=== PATIENT | female | born 1960 | race Caucasian/White ===

== ENCOUNTER 2019-11-17 12:52 | Day surgery (SDC) | payer OTHER ==
[2019-11-14 11:18] LABS: ALANINE AMINOTRANSFERASE 27 U/L (12-78); ALBUMIN 3.7 g/dL (3.4-5.0); ANION GAP 5 mmol/L (5-15); CALCIUM 9.1 mg/dL (8.5-10.1); CHLORIDE 110 mmol/L (98-107); CREATININE 0.71 mg/dL (0.55-1.02)
[2019-11-14 11:20] LABS: ALKALINE PHOSPHATASE 85 U/L (45-117); BILIRUBIN,TOTAL 0.4 mg/dL (0.2-1.0); TOTAL PROTEIN 7.2 g/dL (6.4-8.2)
[2019-11-15 19:45] VITALS: BP 111/71
[~2019-11-17] VITALS: Ht 154.9 cm; Wt 73.5 kg
[~2019-11-17 12:52] MED LIST: ALPR0.5T7 PO; ASPI-496 PO; ATOR-2 PO; ATOR20TA37 PO; HYDROCHLOROTH12.5 MG PO; LISI-467 PO; POTA8TAB PO; PROP20TA PO; cranberry PO
[2019-11-17] MEDS ORDERED: LACTATED RINGERS 1,000 ML IV SCH (13:09)
[2019-11-17] MEDS ORDERED: CHLORHEXIDINE 15 ML UDC MM ONE (13:30)
[2019-11-17] MEDS ORDERED: MIDAZOLAM 1 MG/ML, 2ML ONE (14:51)
[2019-11-17] MEDS ORDERED: FENTANYL PF 250 MCG/5ML ONE (14:52)
[2019-11-17] MEDS ORDERED: BUPIVACAINE/PF-EPI 0.5% 1:200K ONE (14:54)
[2019-11-17] MEDS ORDERED: LIDOCAINE 1%, 20ML ONE (14:54)
[2019-11-17] MEDS ORDERED: ONDANSETRON 2MG/ML, 2ML ONE (15:17)
[2019-11-17] MEDS ORDERED: CEFAZOLIN 1,000 MG ONE (15:17)
[2019-11-17] MEDS ORDERED: PROPOFOL 10 MG/ML, 20ML ONE (15:17)
[2019-11-17] MEDS ORDERED: DEXAMETHASONE 4 MG/ML, 1ML ONE (15:17)
[2019-11-17] MEDS ORDERED: ROCURONIUM 10MG/ML,5ML ONE (15:17)
[2019-11-17] MEDS ORDERED: ALBUTEROL SULFATE 2.5 MG/3 ML NPPB PRN (18:00)
[2019-11-17] MEDS ORDERED: DIAZEPAM 5 MG/ML, 2ML IVPush PRN (18:00)
[2019-11-17] MEDS ORDERED: LABETALOL 5MG/ML, 20ML IV PRN (18:00)
[2019-11-17] MEDS ORDERED: KETOROLAC 30 MG/1 ML IV PRN (18:00)
[2019-11-17] MEDS ORDERED: PROMETHAZINE 25 MG/ML, 1ML IV PRN (18:00)
[2019-11-17] MEDS ORDERED: MEPERIDINE/PF 25MG/0.5ML IVPush PRN (18:00)
[2019-11-17] MEDS ORDERED: FENTANYL PF 100 MCG/2ML IV PRN (18:00)
[2019-11-17] MEDS ORDERED: hydrALAzine 20 MG/ML, 1ML IV PRN (18:00)
[2019-11-17] MEDS ORDERED: ACETAMINOPHEN 325 MG TABLET PO PRN (18:00)
[2019-11-17] MEDS ORDERED: HYDROmorphone 2 MG/ML, 1ML IVPush PRN (18:00)
[2019-11-17] MEDS ORDERED: OXYcodone 5 MG/5 ML ORAL.SOL UDC PO PRN (18:00)
[2019-11-17 19:45] VITALS: BP 111/71
== END 2019-11-17 20:40 | disposition home or self-care (01) ==
LOC: OUT 12:52 → 4NE 19:38 → OUT 20:40
PROVIDERS: ATTEND Podiatrist Foot & Ankle Surgery
DX: M20.41 Other hammer toe(s) (acquired), right foot (principal); Z20.828 Contact with and (suspected) exposure to other viral communicable diseases; M20.12 Hallux valgus (acquired), left foot; I10 Essential (primary) hypertension; M19.90 Unspecified osteoarthritis, unspecified site; Z79.82 Long term (current) use of aspirin; Z79.899 Other long term (current) drug therapy; Z91.040 Latex allergy status; Z98.51 Tubal ligation status; Z90.710 Acquired absence of both cervix and uterus; Z98.890 Other specified postprocedural states; Z83.3 Family history of diabetes mellitus; Z82.49 Family history of ischemic heart disease and other diseases of the circulatory system
CPT/HCPCS: 28285; 28297; 28308; 36415; 73620; 76000; 80053; 87635; 93005; C1713; J0690; J1100; J2250; J2405; J2704; J3010; J7120; G0378

== ENCOUNTER → 2019-12-08 | Outpatient (CLI) | payer OTHER | END | disposition home or self-care (01) | LOC: WOUND 13:59 | PROVIDERS: ATTEND Podiatrist Foot & Ankle Surgery | DX: T81.31XA Disruption of external operation (surgical) wound, not elsewhere classified, initial encounter (principal); I10 Essential (primary) hypertension; E78.5 Hyperlipidemia, unspecified; M86.8X7 Other osteomyelitis, ankle and foot; M19.90 Unspecified osteoarthritis, unspecified site; Z90.49 Acquired absence of other specified parts of digestive tract; Z90.710 Acquired absence of both cervix and uterus; Z91.040 Latex allergy status; Z79.82 Long term (current) use of aspirin; Z79.899 Other long term (current) drug therapy; Y92.238 Other place in hospital as the place of occurrence of the external cause; Y83.8 Other surgical procedures as the cause of abnormal reaction of the patient, or of later complication, without mention of misadventure at the time of the procedure | CPT/HCPCS: 97597; 97598; 99215 ==

== ENCOUNTER 2019-12-15 10:12 | Outpatient (CLI) | payer OTHER | END 2019-12-15 23:59 | disposition home or self-care (01) | LOC: WOUND 10:12 | PROVIDERS: ATTEND Podiatrist Foot & Ankle Surgery | DX: T81.31XD Disruption of external operation (surgical) wound, not elsewhere classified, subsequent encounter (principal); I10 Essential (primary) hypertension; M86.172 Other acute osteomyelitis, left ankle and foot; E78.5 Hyperlipidemia, unspecified; M19.90 Unspecified osteoarthritis, unspecified site; Z87.891 Personal history of nicotine dependence; Z79.82 Long term (current) use of aspirin; Z90.710 Acquired absence of both cervix and uterus; Z90.49 Acquired absence of other specified parts of digestive tract; Z98.51 Tubal ligation status; Y83.8 Other surgical procedures as the cause of abnormal reaction of the patient, or of later complication, without mention of misadventure at the time of the procedure | CPT/HCPCS: 97597; 97598 ==

== ENCOUNTER → 2019-12-22 | Outpatient (CLI) | payer OTHER | END | disposition home or self-care (01) | LOC: WOUND 10:17 | PROVIDERS: ATTEND Podiatrist Foot & Ankle Surgery | DX: T81.31XD Disruption of external operation (surgical) wound, not elsewhere classified, subsequent encounter (principal); I10 Essential (primary) hypertension; M86.172 Other acute osteomyelitis, left ankle and foot; E78.5 Hyperlipidemia, unspecified; M19.90 Unspecified osteoarthritis, unspecified site; Z87.891 Personal history of nicotine dependence; Z79.82 Long term (current) use of aspirin; Z90.710 Acquired absence of both cervix and uterus; Z90.49 Acquired absence of other specified parts of digestive tract; Z98.51 Tubal ligation status; Z91.040 Latex allergy status; Z79.899 Other long term (current) drug therapy; Y83.8 Other surgical procedures as the cause of abnormal reaction of the patient, or of later complication, without mention of misadventure at the time of the procedure | CPT/HCPCS: 97597; 97598 ==

== ENCOUNTER → 2019-12-29 | Outpatient (CLI) | payer OTHER | END | disposition home or self-care (01) | LOC: WOUND 09:43 | PROVIDERS: ATTEND Podiatrist Foot & Ankle Surgery | DX: T81.31XD Disruption of external operation (surgical) wound, not elsewhere classified, subsequent encounter (principal); I10 Essential (primary) hypertension; M86.172 Other acute osteomyelitis, left ankle and foot; E78.5 Hyperlipidemia, unspecified; M19.90 Unspecified osteoarthritis, unspecified site; Z87.891 Personal history of nicotine dependence; Z79.82 Long term (current) use of aspirin; Z90.710 Acquired absence of both cervix and uterus; Z90.49 Acquired absence of other specified parts of digestive tract; Z98.51 Tubal ligation status; Z91.040 Latex allergy status; Z79.899 Other long term (current) drug therapy; Y83.8 Other surgical procedures as the cause of abnormal reaction of the patient, or of later complication, without mention of misadventure at the time of the procedure | CPT/HCPCS: 11042; 11045 ==

== ENCOUNTER → 2020-01-05 | Outpatient (CLI) | payer OTHER | END | disposition home or self-care (01) | LOC: WOUND 09:43 | PROVIDERS: ATTEND Podiatrist Foot & Ankle Surgery | DX: T81.31XD Disruption of external operation (surgical) wound, not elsewhere classified, subsequent encounter (principal); E78.5 Hyperlipidemia, unspecified; M86.672 Other chronic osteomyelitis, left ankle and foot; M19.90 Unspecified osteoarthritis, unspecified site; I10 Essential (primary) hypertension; Z87.891 Personal history of nicotine dependence; Z79.82 Long term (current) use of aspirin; Z90.710 Acquired absence of both cervix and uterus; Z90.49 Acquired absence of other specified parts of digestive tract; Z98.51 Tubal ligation status; Y83.8 Other surgical procedures as the cause of abnormal reaction of the patient, or of later complication, without mention of misadventure at the time of the procedure | CPT/HCPCS: 11042; 11045 ==

== ENCOUNTER 2020-01-07 12:52 | Emergency (ER) | payer OTHER ==
[~2020-01-07] VITALS: Ht 154.9 cm; Wt 70.8 kg
[2020-01-07 13:19] VITALS: BP 118/76
== END 2020-01-07 13:36 | disposition home or self-care (01) ==
LOC: ED 13:30
DX: S90.922D Unspecified superficial injury of left foot, subsequent encounter (principal); Z76.0 Encounter for issue of repeat prescription; X58.XXXD Exposure to other specified factors, subsequent encounter
CPT/HCPCS: 99281

== ENCOUNTER → 2020-01-12 | Outpatient (CLI) | payer OTHER | END | disposition home or self-care (01) | LOC: WOUND 09:24 | PROVIDERS: ATTEND Podiatrist Foot & Ankle Surgery | DX: T81.31XD Disruption of external operation (surgical) wound, not elsewhere classified, subsequent encounter (principal); E78.5 Hyperlipidemia, unspecified; M86.672 Other chronic osteomyelitis, left ankle and foot; M86.172 Other acute osteomyelitis, left ankle and foot; M19.90 Unspecified osteoarthritis, unspecified site; I10 Essential (primary) hypertension; Z87.891 Personal history of nicotine dependence; Z79.82 Long term (current) use of aspirin; Z90.710 Acquired absence of both cervix and uterus; Z90.49 Acquired absence of other specified parts of digestive tract; Z98.51 Tubal ligation status; Z91.040 Latex allergy status; Z79.899 Other long term (current) drug therapy; Y83.8 Other surgical procedures as the cause of abnormal reaction of the patient, or of later complication, without mention of misadventure at the time of the procedure | CPT/HCPCS: 11042; 11045 ==

== ENCOUNTER → 2020-01-18 | Outpatient (CLI) | payer OTHER | END | disposition home or self-care (01) | LOC: CFH 10:43 | PROVIDERS: ATTEND Podiatrist Foot & Ankle Surgery | DX: S92.332A Displaced fracture of third metatarsal bone, left foot, initial encounter for closed fracture (principal); L97.522 Non-pressure chronic ulcer of other part of left foot with fat layer exposed; X58.XXXA Exposure to other specified factors, initial encounter; Y93.89 Activity, other specified; Y92.89 Other specified places as the place of occurrence of the external cause; Y99.8 Other external cause status ==

== ENCOUNTER → 2020-01-19 | Outpatient (CLI) | payer OTHER | END | disposition home or self-care (01) | LOC: WOUND 09:03 | PROVIDERS: ATTEND Podiatrist Foot & Ankle Surgery | DX: T81.31XD Disruption of external operation (surgical) wound, not elsewhere classified, subsequent encounter (principal); E78.5 Hyperlipidemia, unspecified; M86.672 Other chronic osteomyelitis, left ankle and foot; M86.172 Other acute osteomyelitis, left ankle and foot; M19.90 Unspecified osteoarthritis, unspecified site; I10 Essential (primary) hypertension; Z87.891 Personal history of nicotine dependence; Z79.82 Long term (current) use of aspirin; Z90.710 Acquired absence of both cervix and uterus; Z90.49 Acquired absence of other specified parts of digestive tract; Z98.51 Tubal ligation status; Z91.040 Latex allergy status; Z79.899 Other long term (current) drug therapy; Y83.8 Other surgical procedures as the cause of abnormal reaction of the patient, or of later complication, without mention of misadventure at the time of the procedure | CPT/HCPCS: 11042 ==

== ENCOUNTER → 2020-01-26 | Outpatient (CLI) | payer OTHER | END | disposition home or self-care (01) | LOC: WOUND 09:36 | PROVIDERS: ATTEND Podiatrist Foot & Ankle Surgery | DX: T81.31XD Disruption of external operation (surgical) wound, not elsewhere classified, subsequent encounter (principal); M86.672 Other chronic osteomyelitis, left ankle and foot; M19.90 Unspecified osteoarthritis, unspecified site; I10 Essential (primary) hypertension; E78.5 Hyperlipidemia, unspecified; Z87.891 Personal history of nicotine dependence; Z79.82 Long term (current) use of aspirin; Z90.710 Acquired absence of both cervix and uterus; Z90.49 Acquired absence of other specified parts of digestive tract; Z98.51 Tubal ligation status; Y83.8 Other surgical procedures as the cause of abnormal reaction of the patient, or of later complication, without mention of misadventure at the time of the procedure | CPT/HCPCS: 11042 ==

== ENCOUNTER 2020-02-02 09:41 | Outpatient (CLI) | payer OTHER | END 2020-02-02 23:59 | disposition home or self-care (01) | LOC: WOUND 09:41 | PROVIDERS: ATTEND Podiatrist Foot & Ankle Surgery | DX: T81.31XD Disruption of external operation (surgical) wound, not elsewhere classified, subsequent encounter (principal); L97.522 Non-pressure chronic ulcer of other part of left foot with fat layer exposed; M86.672 Other chronic osteomyelitis, left ankle and foot; M19.90 Unspecified osteoarthritis, unspecified site; I10 Essential (primary) hypertension; E78.5 Hyperlipidemia, unspecified; Z87.891 Personal history of nicotine dependence; Z79.82 Long term (current) use of aspirin; Z90.710 Acquired absence of both cervix and uterus; Z90.49 Acquired absence of other specified parts of digestive tract; Z98.51 Tubal ligation status; Z91.040 Latex allergy status; Z79.899 Other long term (current) drug therapy; Y83.8 Other surgical procedures as the cause of abnormal reaction of the patient, or of later complication, without mention of misadventure at the time of the procedure | CPT/HCPCS: 11042 ==

== ENCOUNTER 2020-02-09 10:35 | Outpatient (CLI) | payer OTHER | END 2020-02-09 23:59 | disposition home or self-care (01) | LOC: WOUND 10:35 | PROVIDERS: ATTEND Podiatrist Foot & Ankle Surgery | DX: T81.31XD Disruption of external operation (surgical) wound, not elsewhere classified, subsequent encounter (principal); L97.522 Non-pressure chronic ulcer of other part of left foot with fat layer exposed; M86.672 Other chronic osteomyelitis, left ankle and foot; M86.172 Other acute osteomyelitis, left ankle and foot; I10 Essential (primary) hypertension; E78.5 Hyperlipidemia, unspecified; M19.072 Primary osteoarthritis, left ankle and foot; Z87.891 Personal history of nicotine dependence; Z79.82 Long term (current) use of aspirin; Z90.710 Acquired absence of both cervix and uterus; Z90.49 Acquired absence of other specified parts of digestive tract; Z98.51 Tubal ligation status; Z91.040 Latex allergy status; Z79.899 Other long term (current) drug therapy; Y83.8 Other surgical procedures as the cause of abnormal reaction of the patient, or of later complication, without mention of misadventure at the time of the procedure | CPT/HCPCS: 11042 ==

== ENCOUNTER → 2020-02-23 | Outpatient (CLI) | payer OTHER | END | disposition home or self-care (01) | LOC: CFH 10:01 | PROVIDERS: ATTEND Podiatrist Foot & Ankle Surgery | DX: Z48.812 Encounter for surgical aftercare following surgery on the circulatory system (principal); M19.072 Primary osteoarthritis, left ankle and foot; M85.872 Other specified disorders of bone density and structure, left ankle and foot; M21.962 Unspecified acquired deformity of left lower leg ==

== ENCOUNTER → 2020-02-23 | Outpatient (CLI) | payer OTHER | END | disposition home or self-care (01) | LOC: WOUND 08:51 | PROVIDERS: ATTEND Podiatrist Foot & Ankle Surgery | DX: T81.31XD Disruption of external operation (surgical) wound, not elsewhere classified, subsequent encounter (principal); L97.526 Non-pressure chronic ulcer of other part of left foot with bone involvement without evidence of necrosis; M86.672 Other chronic osteomyelitis, left ankle and foot; M86.172 Other acute osteomyelitis, left ankle and foot; I10 Essential (primary) hypertension; E78.5 Hyperlipidemia, unspecified; M19.072 Primary osteoarthritis, left ankle and foot; Z87.891 Personal history of nicotine dependence; Z79.82 Long term (current) use of aspirin; Z90.710 Acquired absence of both cervix and uterus; Z90.49 Acquired absence of other specified parts of digestive tract; Z98.51 Tubal ligation status; Z91.040 Latex allergy status; Z79.899 Other long term (current) drug therapy; Y83.8 Other surgical procedures as the cause of abnormal reaction of the patient, or of later complication, without mention of misadventure at the time of the procedure | CPT/HCPCS: 11044 ==

== ENCOUNTER → 2020-03-01 | Outpatient (CLI) | payer OTHER | END | disposition home or self-care (01) | LOC: WOUND 09:23 | PROVIDERS: ATTEND Podiatrist Foot & Ankle Surgery | DX: T81.31XD Disruption of external operation (surgical) wound, not elsewhere classified, subsequent encounter (principal); L97.524 Non-pressure chronic ulcer of other part of left foot with necrosis of bone; M86.672 Other chronic osteomyelitis, left ankle and foot; M86.172 Other acute osteomyelitis, left ankle and foot; I10 Essential (primary) hypertension; E78.5 Hyperlipidemia, unspecified; M19.072 Primary osteoarthritis, left ankle and foot; Z87.891 Personal history of nicotine dependence; Z79.82 Long term (current) use of aspirin; Z90.710 Acquired absence of both cervix and uterus; Z90.49 Acquired absence of other specified parts of digestive tract; Z98.51 Tubal ligation status; Z91.040 Latex allergy status; Z79.899 Other long term (current) drug therapy; Y83.8 Other surgical procedures as the cause of abnormal reaction of the patient, or of later complication, without mention of misadventure at the time of the procedure | CPT/HCPCS: 11042 ==

== ENCOUNTER → 2020-03-08 | Outpatient (CLI) | payer OTHER | END | disposition home or self-care (01) | LOC: WOUND 08:55 | PROVIDERS: ATTEND Podiatrist Foot & Ankle Surgery | DX: T81.31XD Disruption of external operation (surgical) wound, not elsewhere classified, subsequent encounter (principal); L97.524 Non-pressure chronic ulcer of other part of left foot with necrosis of bone; M86.672 Other chronic osteomyelitis, left ankle and foot; M86.172 Other acute osteomyelitis, left ankle and foot; I10 Essential (primary) hypertension; E78.5 Hyperlipidemia, unspecified; M19.072 Primary osteoarthritis, left ankle and foot; M85.80 Other specified disorders of bone density and structure, unspecified site; Z87.891 Personal history of nicotine dependence; Z79.82 Long term (current) use of aspirin; Z90.710 Acquired absence of both cervix and uterus; Z90.49 Acquired absence of other specified parts of digestive tract; Z98.51 Tubal ligation status; Z91.040 Latex allergy status; Z79.899 Other long term (current) drug therapy; Y83.8 Other surgical procedures as the cause of abnormal reaction of the patient, or of later complication, without mention of misadventure at the time of the procedure | CPT/HCPCS: 97597 ==

== ENCOUNTER → 2020-04-26 | Outpatient (CLI) | payer OTHER | END | disposition home or self-care (01) | LOC: WOUND 07:43 | PROVIDERS: ATTEND Podiatrist Foot & Ankle Surgery | DX: T81.31XD Disruption of external operation (surgical) wound, not elsewhere classified, subsequent encounter (principal); L97.524 Non-pressure chronic ulcer of other part of left foot with necrosis of bone; M86.672 Other chronic osteomyelitis, left ankle and foot; M86.172 Other acute osteomyelitis, left ankle and foot; I10 Essential (primary) hypertension; E78.5 Hyperlipidemia, unspecified; M19.072 Primary osteoarthritis, left ankle and foot; M85.80 Other specified disorders of bone density and structure, unspecified site; Z87.891 Personal history of nicotine dependence; Z79.82 Long term (current) use of aspirin; Z90.710 Acquired absence of both cervix and uterus; Z90.49 Acquired absence of other specified parts of digestive tract; Z98.51 Tubal ligation status; Z91.040 Latex allergy status; Z79.899 Other long term (current) drug therapy; Y83.8 Other surgical procedures as the cause of abnormal reaction of the patient, or of later complication, without mention of misadventure at the time of the procedure | CPT/HCPCS: 99213 ==